=== PATIENT | female | born 1980 | race Caucasian/White ===

== ENCOUNTER 2016-11-07 14:02 | Day surgery (SDC) | payer MEDICAID ==
[~2016-11-07] VITALS: Ht 165.1 cm; Wt 61.3 kg
--- NOTE | ~2016-11-07 | OR ---
PATIENT'S NAME: CLAUDIA FARLEY [facility] AGE: 36 Y [address] ROOM: [address] [id number] LOCATION: [facility] [place] ADMIT DATE: 11/07/2016 OR/Procedure Report DISCHARGE DATE: FAMILY PHYSICIAN: Misty Starkey APRN ATTENDING PHYSICIAN: VIRAJ WHITNEY SURGEON: Per Chiang MD TRACK REPAIR LABORER: DATE OF PROCEDURE: 11/07/2016 PREOPERATIVE DIAGNOSIS: Right hydronephrosis with a possible distal right ureter stone. POSTOPERATIVE DIAGNOSIS: Right hydronephrosis with a possible distal right ureter stone. PROCEDURE PERFORMED: Cystoscopy, right retrograde pyelogram, and right stent placement. ANESTHESIA: General mask. COMPLICATIONS: None. INDICATION FOR PROCEDURE: The patient is a 36-year-old female with acute- onset of right flank pain. Earlier today, abdominopelvic CT scan shows right hydronephrosis with a questionable distal right ureter stone. DETAILS OF PROCEDURE: After informed consent was obtained, the patient was taken to the operating room. A general anesthetic was applied and she was placed in the dorsal lithotomy position. The groin area was prepped and draped in normal sterile fashion. Cystoscope was introduced into the urethra and bladder without difficulty. The right ureteral orifice was identified and cannulated with a guidewire up into the renal pelvis. There appeared to be an area of slight resistance in the pelvis as the guidewire was passed. Next, a yellow Flexi-Tip catheter was introduced over the guidewire. I then injected contrast, no definite stones were apparent, there was question of maybe a filling defect, but appeared more to be air bubble. Again, no definite stones or masses were noted. Following this, the open-ended catheter was removed and a 6-Dutch multi-length ureteral stent was passed over the guidewire up into the renal pelvis. Radiograph imaging showed good position of the stent. Also, note during the retrograde pyelogram, the renal collecting system was nondilated with sharp calyces and no extravasation of contrast. Following stent placement, the bladder was empty and the procedure terminated. The patient tolerated the procedure well and was transferred to the recovery room in good condition. PATIENT'S NAME: CLAUDIA FARLEY [facility] AGE: 36 Y [address] ROOM: [id number] [place], [place] [id number] LOCATION: [facility] [place] ADMIT DATE: 11/07/2016 OR/Procedure Report DISCHARGE DATE: FAMILY PHYSICIAN: Misty Starkey APRN ATTENDING PHYSICIAN: VIRAJ WHITNEY MD BEN WONG/brody /[id number] CC: Misty Starkey APRN d: 11/08/16 0159 t: 11/19/16 1019, OPERATIVE SUMMARY
[2016-11-07] MEDS ORDERED: ADVIL200 MG PO (15:16)
[2016-11-07] MEDS ORDERED: TYLENOL WITH C1 EACH PO (17:44)
== END 2016-11-07 18:05 | disposition disaster alternative care site (69) ==
LOC: GSDC 14:02 → GMSU 14:02 → GSDC 18:05 → GMSU 23:53
PROC: 0T768DZ Dilation of Right Ureter with Intraluminal Device, Via Natural or Artificial Opening Endoscopic (ICD-10-PCS; principal; 2016-11-07)
PROC: BT1DZZZ Fluoroscopy of Right Kidney, Ureter and Bladder (ICD-10-PCS; 2016-11-07)
DX: N13.30 Unspecified hydronephrosis (principal); F32.9 Major depressive disorder, single episode, unspecified; F41.9 Anxiety disorder, unspecified; Z98.890 Other specified postprocedural states
CPT/HCPCS: C1769; J1100; J1956; J2001; J2250; J3010; J7030

== ENCOUNTER → 2016-12-10 | Outpatient (CLI) | payer MEDICAID ==
[~2016-12-10] MED LIST: ADVIL200 MG PO; TYLENOL WITH C1 EACH PO
== END | disposition disaster alternative care site (69) ==
LOC: GRAD 11-27 10:30
DX: N20.0 Calculus of kidney (principal); Z96.0 Presence of urogenital implants
CPT/HCPCS: J1956; J2001; J7120

== ENCOUNTER 2016-12-11 12:10 | Day surgery (SDC) | payer MEDICAID ==
[~2016-12-11] VITALS: Ht 165.1 cm; Wt 59.0 kg
--- NOTE | ~2016-12-11 | OR ---
PATIENT'S NAME: CLAUDIA FARLEY [facility] AGE: 36 Y [address] ROOM: [place] [id number] LOCATION: [facility] [place] ADMIT DATE: 12/11/2016 OR/Procedure Report DISCHARGE DATE: FAMILY PHYSICIAN: Misty Starkey APRN ATTENDING PHYSICIAN: Per Chiang SURGEON: Per Chiang MD GRAIN LOADER: DATE OF PROCEDURE: 12/11/2016 PREOPERATIVE DIAGNOSIS: Right nephrolithiasis. POSTOPERATIVE DIAGNOSIS: Right nephrolithiasis. PROCEDURE PERFORMED: 1. Right extracorporeal shock wave lithotripsy. 2. Cystoscopy with stent removal. ANESTHESIA: MAC. COMPLICATIONS: None. INDICATION FOR PROCEDURE: The patient is a 36-year-old female who experienced an acute onset of right flank pain. An abdominopelvic CT scan revealed right hydronephrosis with questionable distal right ureter stone. The patient underwent cystoscopy with right retrograde pyelogram and right stent placement. No stone was identified at that time. The patient presents for followup with a KUB which identified a 4 x 5 mm right lower pole stone without obstruction. DETAILS OF PROCEDURE: After informed consent was obtained, the patient was taken to the operating room. A MAC anesthetic was applied, and she was placed in the supine position on the lithotripsy table. Fluoroscopy was then used to target her stone. She received shocks starting at 16 kilovolts and gradually increased to 24 kilovolts. She received a total of 2000 shocks and her stone appeared to fragment well with treatment. The patient was then placed in a frog-leg position. The groin area was prepped and draped in normal sterile fashion. Flexible cystoscope was introduced into the urethra and bladder without difficulty. Her stent was identified in the right ureteral orifice, engaged with forceps and removed. The patient tolerated her procedure well and transferred to recovery room in good condition. PATIENT'S NAME: CLAUDIA FARLEY [facility] AGE: 36 Y [address] ROOM: [place] [id number] LOCATION: [facility] [place] ADMIT DATE: 12/11/2016 OR/Procedure Report DISCHARGE DATE: FAMILY PHYSICIAN: Misty Starkey APRN ATTENDING PHYSICIAN: Per Chiang MD BEN WONG/brody /[id number] CC: Misty Starkey APRN d: 12/11/16 1953 t: 01/02/17 1146, OPERATIVE SUMMARY
[2016-12-11 12:56] LABS: BASOPHIL # 0.1 K/uL (0.0-0.2); BASOPHIL % 0.6 %; EOSINOPHIL # 0.1 K/uL (0.0-0.5); EOSINOPHIL % 1.5 %; HEMATOCRIT 43.5 % (33.0-46.0); HEMOGLOBIN 14.9 g/dL (11.0-15.0); IMMATURE GRANULOCYTE % 0.2 %; LYMPHOCYTE # 3.6 K/uL (0.8-4.0); LYMPHOCYTE % 45.1 %; MCH 32.2 pg (27.0-34.0); MCHC 34.3 gm/dL (32.0-36.5); MONOCYTE # 0.8 K/uL (0.0-1.0); MONOCYTE % 9.6 %; MPV 8.8 fl (9.4-12.4); NEUTROPHIL # (ANC) 3.4 K/uL (1.8-7.8); NRBC % 0 /100WBC (0-0.00); PLATELET COUNT 310 K/uL (150-450); RBC 4.63 M/uL (3.50-5.50); RDW-CV 11.9 % (11.9-14.6)
[2016-12-11 13:13] LABS: ALBUMIN 3.7 gm/dL (3.5-5.0); ALK PHOS 128 IU/L (33-138); ALT 37 IU/L (12-78); ANION GAP 10.6 (10.0-19.0); AST 23 IU/L (10-40); BLOOD UREA NITROGEN 12 mg/dL (6-24); CALCIUM 8.6 mg/dL (8.5-10.5); CHLORIDE 107 mMol/L (96-110); CO2 26 mMol/L (22-32); CREATININE 0.7 mg/dL (0.5-1.1); POTASSIUM 3.6 mMol/L (3.7-5.1); SODIUM 140 mMol/L (135-145); TOTAL BILIRUBIN 0.6 mg/dL (0.0-1.5); TOTAL PROTEIN 7.1 g/dL (6.0-8.4)
[2016-12-11] MEDS ORDERED: TYLENOL WITH C1 EACH PO (14:27)
== END 2016-12-11 15:10 | disposition disaster alternative care site (69) ==
LOC: GSDC 12:10
PROVIDERS: Urology
PROC: 0TF3XZZ Fragmentation in Right Kidney Pelvis, External Approach (ICD-10-PCS; principal; 2016-12-11)
PROC: 0TP98DZ Removal of Intraluminal Device from Ureter, Via Natural or Artificial Opening Endoscopic (ICD-10-PCS; 2016-12-11)
DX: N20.0 Calculus of kidney (principal); F41.9 Anxiety disorder, unspecified; F32.9 Major depressive disorder, single episode, unspecified; Z98.890 Other specified postprocedural states
CPT/HCPCS: J1956; J2001; J7120